=== PATIENT | male | born 1955 | race Hispanic/Latino ===

== ENCOUNTER 2020-06-29 10:57 | Emergency (ER) | payer SELFPAY ==
[2020-06-29] MEDS ORDERED: ZOFRAN4 MG SL (11:08)
[2020-06-29] MEDS ORDERED: AZITHROMYCIN250 MG PO (11:08)
[2020-06-29] MEDS ORDERED: TYLENOL # 31 EA PO (11:08)
== END 2020-06-29 11:20 | disposition home or self-care (01) ==
LOC: ER 11:10
DX: U07.1 COVID-19 (principal); R50.9 Fever, unspecified; R05 Cough
CPT/HCPCS: 99283; U0002

== ENCOUNTER 2024-08-21 17:57 | Emergency (ER) | payer MEDICARE ==
[~2024-08-21] VITALS: Ht 167.6 cm; Wt 68.0 kg
[~2024-08-21 17:57] MED LIST: AZITHROMYCIN250 MG PO; TYLENOL # 31 EA PO; ZOFRAN4 MG SL
[2024-08-21 18:09] VITALS: RESP 16; TEMP 98.7
[2024-08-21] MEDS: TETANUS/DIPHTHERIA TOX ADULT 0.5 ML SYR IM ONE (18:28)
[2024-08-21 20:12] VITALS: PULSE 80; O2SAT 100
== END 2024-08-21 20:15 | disposition home or self-care (01) ==
LOC: ER 18:14
DX: S61.213A Laceration without foreign body of left middle finger without damage to nail, initial encounter (principal); W26.8XXA Contact with other sharp object(s), not elsewhere classified, initial encounter; Y92.89 Other specified places as the place of occurrence of the external cause
CPT/HCPCS: 90471; 90714; 99283